=== PATIENT | male | born 1970 | race Caucasian/White ===

== ENCOUNTER 2018-09-10 11:11 | Emergency (ER) | payer MEDICAID, OTHER ==
[~2018-09-10] VITALS: Ht 188 cm; Wt 86.4 kg
[2018-09-10] MEDS ORDERED: SULF1TAB93 PO (11:20)
[2018-09-10] MEDS ORDERED: LOSA50TA88 (11:20)
[2018-09-10 14:12] LABS: BASO % 0.4 % (0.0-1.0); EOS # 0.3 10^3/uL (0.0-0.50); EOS % 2.6 % (0.0-3.0); HEMATOCRIT 50.5 % (42.0-52.0); HEMOGLOBIN 16.7 g/dl (13.5-17.5); LYMPH # 2.1 10^3/uL (1.5-4.5); LYMPH % 21.9 % (24.0-44.0); MEAN CORPUSCULAR HEMOGLOBIN 28.5 pg (27.0-33.0); MEAN CORPUSCULAR HGB CONC 33.1 g/dl (32.0-36.5); MEAN CORPUSCULAR VOLUME 86.3 fl (80.0-96.0); MONO # 0.5 10^3/uL (0.0-0.8); MONO % 5.3 % (0.0-5.0); NEUTROPHILS # 6.6 10^3/uL (1.8-7.7); NEUTROPHILS % 69.4 % (36.0-66.0); PLATELET COUNT, AUTOMATED 340 10^3/uL (150-450); RED BLOOD COUNT 5.85 10^6/uL (4.30-6.10); WHITE BLOOD COUNT 9.6 10^3/uL (4.0-10.0)
[2018-09-10 14:35] LABS: ALBUMIN 4.4 GM/DL (3.2-5.2); BILIRUBIN,DIRECT 0.2 MG/DL (0.0-0.2); BILIRUBIN,TOTAL 0.9 MG/DL (0.2-1.0); CALCIUM LEVEL 9.2 MG/DL (8.5-10.1); CREATININE FOR GFR 1.78 MG/DL (0.70-1.30); POTASSIUM SERUM 4.7 MEQ/L (3.5-5.1); TOTAL PROTEIN 8.4 GM/DL (6.4-8.2)
--- NOTE | 2018-09-10 15:13 | REP ---
The CT of the abdomen and pelvis without IV or bowel contrast for lower abdominal pain: There are no comparisons. The visualized lung arroyo are unremarkable. The unenhanced hepatic parenchyma, gallbladder, pancreas and spleen are unremarkable. The adrenals, unenhanced kidneys and abdominal aorta are unremarkable. There is mild wall thickening of the descending colon and sigmoid colon, nonspecific, but compatible with colitis in the appropriate clinical setting. Pelvis: The appendix is unremarkable. There is no adenopathy or ascites. The bladder is unremarkable. Impression: There are findings compatible with colitis of the descending colon and sigmoid colon in the appropriate clinical setting. Electronically Signed by Aakash Quinones MD 09/10/2018 03:03 P
[2018-09-10 16:10] VITALS: BP 133/86
== END 2018-09-10 16:16 | disposition home or self-care (01) ==
LOC: M ED 11:11
DX: R10.9 Unspecified abdominal pain (principal); N28.9 Disorder of kidney and ureter, unspecified; S40.861A Insect bite (nonvenomous) of right upper arm, initial encounter; W57.XXXA Bitten or stung by nonvenomous insect and other nonvenomous arthropods, initial encounter; Y92.89 Other specified places as the place of occurrence of the external cause; I10 Essential (primary) hypertension; F17.220 Nicotine dependence, chewing tobacco, uncomplicated

== ENCOUNTER → 2022-11-01 | Day surgery (SDC) | payer OTHER ==
[~2022-11-01] VITALS: Ht 189.2 cm; Wt 96.0 kg
[~2022-11-01] MED LIST: BACTDSTA PO; LISI5TAB11 PO; LOSA50TA28; NS 1,000 ML IV ONE; PANT40TA29 PO; RIZA10TA2 PO
[2022-11-01 11:43] VITALS: BP 132/81; TEMP 97.3; O2SAT 96
== END | disposition home or self-care (01) ==
LOC: M OPP 09:26
PROVIDERS: ATTEND Internal Medicine Gastroenterology
DX: K29.70 Gastritis, unspecified, without bleeding (principal); K30 Functional dyspepsia; Z79.899 Other long term (current) drug therapy

== ENCOUNTER 2023-05-02 10:04 | Day surgery (SDC) | payer OTHER ==
[~2023-05-02] VITALS: Ht 188 cm; Wt 100.7 kg
[~2023-05-02 10:04] MED LIST changes: +DOCU100C16 PO; +LIDOCAINE 2% 100MG/5ML SDV (FOR ANES.) As Ordered ONE; -NS 1,000 ML IV ONE; +propofoL 200 MG/20 ML VIAL As Ordered ONE
[2023-05-02] MEDS: NS 1,000 ML IV ONE (10:15)
[2023-05-02 11:10] VITALS: TEMP 98.7
[2023-05-02] MEDS ORDERED: KETOROLAC 30 MG/ML 1ML VIAL As Ordered ONE (11:26)
[2023-05-02] MEDS: KETOROLAC 30 MG/ML 1ML VIAL IV ONE (11:30)
[2023-05-02 11:32] VITALS: BP 115/76; O2SAT 98
== END 2023-05-02 12:15 | disposition home or self-care (01) ==
LOC: M OPP 10:04
PROVIDERS: ATTEND Internal Medicine Gastroenterology
DX: R10.31 Right lower quadrant pain (principal); D12.3 Benign neoplasm of transverse colon; D12.7 Benign neoplasm of rectosigmoid junction; K64.8 Other hemorrhoids; K64.4 Residual hemorrhoidal skin tags; K21.9 Gastro-esophageal reflux disease without esophagitis; I10 Essential (primary) hypertension; Z79.899 Other long term (current) drug therapy; Z87.891 Personal history of nicotine dependence; G43.909 Migraine, unspecified, not intractable, without status migrainosus
CPT/HCPCS: 45380; 45385; 88305; J1885